=== PATIENT | male | born 1955 | race Caucasian/White ===

== ENCOUNTER → 2019-06-16 | Outpatient (CLI) | payer OTHER ==
--- NOTE | 2019-06-16 17:50 | RAD ---
CT CHEST WO CONTRAST Indication: Abnormal CT Technique: Noncontrast CT imaging was performed of the chest, multiplanar reconstruction images submitted. One or more of the following individualized dose reduction techniques were utilized for this examination: 1. Automated exposure control 2. Adjustment of the mA and/or kV according to patient size 3. Use of iterative reconstruction technique. Comparison: None Findings: There is coronary calcification. Ascending thoracic aorta is dilated about 4.2 cm. Aortic root is dilated about 4.7 cm. Descending thoracic aorta is not significantly dilated, up to about 2.9 cm. There is no pleural or pericardial fluid, pneumothorax, lobar consolidation. There is emphysema. There is a large, centrally partially calcified nodule of the left lower lobe near the base, up to about 2 cm. There is noncalcified left lower lobe nodule image 48 series 2 about 0.6 cm, 0.4 seen nodule left lower lobe image 39, 0.2 cm left lower lobe nodule image 43, 0.3 cm nodule left lower lobe image 37, 0.2 cm left lower lobe nodule image 37, 0.2 cm left upper lobe nodule image 27, 0.3 cm left upper lobe nodule image 14, 0.6 cm right upper lobe nodule image 31, 0.7 cm right lower lobe nodule image 35, 0.5 cm right lower lobe nodule image 37, 0.4 cm right lower lobe nodule image 38, 0.2 cm right lower lobe nodule image 41. There are some calcified nodes of the right hilum and mediastinum, evidence of old granulomatous disease. There is mild superior thoracic dextroscoliosis. There are thoracic spinal stimulator leads. IMPRESSION: 1. There are pulmonary nodules as stated, largest noncalcified nodule of the right lower lobe about 0.7 cm. 3-6 month follow-up is recommended as per revised Fleischner guidelines. There is a large centrally calcified nodule of the left lower lobe at the base. 2. 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 3. There is coronary calcification. 4. There is emphysema. 5. There is evidence of old granulomatous disease. Electronically signed by: Armando Ireland MD (06/16/2019 5:47 PM) [id number]
== END | disposition home or self-care (01) ==
LOC: CT 09:03
PROVIDERS: ATTEND Family Medicine
DX: J43.9 Emphysema, unspecified (principal); R91.8 Other nonspecific abnormal finding of lung field; I25.10 Atherosclerotic heart disease of native coronary artery without angina pectoris; D71 Functional disorders of polymorphonuclear neutrophils
CPT/HCPCS: 71250

== ENCOUNTER → 2019-10-16 | Outpatient (CLI) | payer MEDICARE ==
--- NOTE | 2019-10-16 15:57 | RAD ---
CT CHEST WO CONTRAST Indication: Pulmonary nodule Technique: Noncontrast CT imaging was performed of the chest, multiplanar reconstruction images submitted. One or more of the following individualized dose reduction techniques were utilized for this examination: 1. Automated exposure control 2. Adjustment of the mA and/or kV according to patient size 3. Use of iterative reconstruction technique. Comparison: June 16, 2019 Findings: There is again emphysema. There is again large centrally calcified left lower lobe nodule near the base on the order 2 cm. 0.6 and left lower lobe nodule image 20 series 2 is stable. 0.3 cm left lower lobe nodule image 45 and fairly dense 0.4 cm left lower lobe nodule image 41 are similar, also some small foci of nodularity image 40 of the left lower lobe unchanged. 0.3 cm left upper lobe nodule image 13 is stable. 0.2 to 0.3 cm nodule left upper lobe image 26 is stable. A couple of small dense right lower lobe nodules about 0.3 cm images 47 and 45 are stable. 0.6 to 0.7 cm right lower lobe nodule image 37 is similar, 0.3 cm right lower lobe nodule image 37 is unchanged. 0.5 cm right lower lobe nodule image 40 is stable. 0.6 cm nodule of the right upper lobe near the minor fissure image 28 is similar. 0.3 cm superior right lower lobe nodule image 25 is stable. 0.4 cm right upper lobe nodule image 22 is stable. No new pulmonary nodularity is identified. There are again some calcified right hilar and mediastinal nodes, no new significant chest lymphadenopathy. There is again dilatation ascending thoracic aorta about 4.2 cm, also again degree of aortic root dilatation at least 4.5 cm. There is some coronary calcification. There is no pleural or pericardial effusion, pneumothorax, or lobar infiltrate. There is tiny focus of calcification the long the anterior wall of the gallbladder. There are thoracic spinal stimulator leads. There is mid to superior thoracic dextroscoliosis. IMPRESSION: 1. Bilateral pulmonary nodules have not significantly changed. As per revised Fleischner guidelines, 18-24 month follow-up is recommended. 2. There is again dilatation of the tubular ascending thoracic aorta and aortic root. 3. There is again evidence of old granulomatous disease. 4. There is some coronary calcification. Electronically signed by: Armando Ireland MD (10/16/2019 3:54 PM) [place] [id number]
== END ==
LOC: CT 10:41
PROVIDERS: ATTEND Internal Medicine Pulmonary Disease
DX: I77.810 Thoracic aortic ectasia (principal); R91.8 Other nonspecific abnormal finding of lung field; I25.10 Atherosclerotic heart disease of native coronary artery without angina pectoris; J43.9 Emphysema, unspecified
CPT/HCPCS: 71250